=== PATIENT | female | born 1935 | race Caucasian/White ===

== ENCOUNTER 2018-07-15 07:56 | Day surgery (SDC) | payer MEDICARE, BC ==
[~2018-07-15] VITALS: Ht 157.5 cm; Wt 79.5 kg
--- NOTE | ~2018-07-15 | OP ---
PATIENT NAME: EMILIA YEH MEDICAL RECORD: [id number] :35 LOCATION:D.OPS ADMISSION DATE: SURGEON: SHAQ RUIZ MD DATE OF OPERATION: 07/15/2018 PREOPERATIVE DIAGNOSIS: Ascending colon polyp, which was a serrated adenoma. POSTOPERATIVE DIAGNOSES: 1. Ascending colon polyp, which was a serrated adenoma. 2. No apparent residual polyp. There was a secondary sessile polyp, which was a 9-mm polyp that was located at 20 cm. 3. Severe left-sided diverticulosis. PROCEDURES: 1. Total colonoscopy to cecum. 2. Hot biopsy forceps polypectomy times 1. SURGEON: Shaq Ruiz MD RAILROAD INSPECTOR: None. BLOOD LOSS: Minimal. ANESTHESIA: IV sedation. COMPLICATIONS: None. The risks, possible complications, and alternatives to the procedure were explained to the patient. She elects to proceed. ENDOSCOPIC COURSE: The patient was conveyed to endoscopy suite electively on 07/15/2018. IV sedation was induced by the anesthesia staff. The patient was placed in the Babb position. A digital rectal examination was performed. A colonoscope was inserted through the anus. It was easily advanced to the cecum. Upon withdrawal, I irrigated and aspirated extensively. I utilized normal imaging as well as narrow band imaging. The prep was fair. The tattoos in the ascending colon were noted. I noted no residual polypoid tissue. I continued to withdraw the endoscope. There was a sessile polyp, which was removed in its entirety utilizing the hot biopsy forceps polypectomy technique. A retroflexed view was obtained in the rectum. I then unretroflexed the scope and removed it under direct vision. I will see the patient in my office in 2-3 weeks. I will plan for her next colonoscopy to take place in 2 years. TRANSINT:[id number] Voice Confirmation ID: [id number] DOCUMENT ID: [id number] OPERATIVE REPORT [id number] EMILIA YEH SHAQ RUIZ MD CC: Sayra HUNTLEY BRENDA [id number] DICTATION DATE: 07/15/18 1244 FINANCIAL ADVISER: 07/15/18 1456 [facility] 07/15/18 [place] [address]
[2018-07-15 08:31] LABS: BASOPHILS 0.2 % (0-2); EOSINOPHILS 1.3 % (0-7); HEMATOCRIT 43.9 % (36.0-48.0); HEMOGLOBIN 14.5 g/dL (12-16); IMMATURE GRANULOCYTES 0.4 % (0-5); LYMPHOCYTES 26.6 % (15-50); MCH 31.9 pg (26.0-34.0); MCV 96.5 fL (80.0-100.0); MEAN PLATELET VOLUME 10.9 fL (7.4-10.4); MONOCYTES 12.2 % (2-11); NEUTROPHILS 59.3 % (40-80); PLATELET COUNT 249 10x3/uL (130-400); RBC 4.55 10x6/uL (4.00-5.40); RDW 13.2 % (11.5-14.5); WBC 8.4 10x3/uL (4.8-10.8)
[2018-07-15 08:39] LABS: ANION GAP 10.1 mmol/L (8-16); CALCIUM 8.9 mg/dL (8.5-10.1); CARBON DIOXIDE 32.5 mmol/L (21.0-32.0); POTASSIUM - SERUM 3.6 mmol/L (3.5-5.1)
[2018-07-15] MEDS ORDERED: ALBUTEROL SULF8.5 GM INH (09:44)
[2018-07-15] MEDS ORDERED: FUROSEMIDE40 MG PO (09:44)
[2018-07-15] MEDS ORDERED: TRELEGY ELLIPT1 EACH INH (09:44)
[2018-07-15] MEDS ORDERED: [UNRECOGNIZED DRUG - OTHER] (09:45)
[2018-07-15] MEDS ORDERED: EFFEXOR XR75 MG PO (09:45)
[2018-07-15] MEDS ORDERED: MOBIC7.5 MG PO (09:45)
[2018-07-15 09:52] VITALS: BP 117/59; Ht 157.5 cm; Wt 79.5 kg
--- NOTE | 2018-07-15 13:36 | NUR ---
1300-RECD TO ROOM, PORTABLE CXR DONE 1305-DR RUIZ LOOKS AT CXR 1315-FULL LIQUIDS SERVED 1330-IV D/C. VOIDS AND DRESSED. DISCHARGE INSTRUCTIONS REVIEWED. 1336-D/C HOME WITH FAMILY.
== END 2018-07-15 13:36 | disposition home or self-care (01) ==
LOC: D.OPS 07:56
PROVIDERS: Anesthesiology; ATTEND Surgery
DX: D12.5 Benign neoplasm of sigmoid colon (principal); K57.30 Diverticulosis of large intestine without perforation or abscess without bleeding; Z01.812 Encounter for preprocedural laboratory examination

== ENCOUNTER → 2018-11-04 13:23 | Outpatient (CLI) | payer MEDICARE, BC ==
[2018-07-15 09:52] VITALS: BMI 32.1
[~2018-11-04 13:23] MED LIST: ALBUTEROL SULF8.5 GM INH; EFFEXOR XR75 MG PO; FUROSEMIDE40 MG PO; MOBIC7.5 MG PO; TRELEGY ELLIPT1 EACH INH; [UNRECOGNIZED DRUG - OTHER]
--- NOTE | 2018-11-11 11:09 | EC ---
PATIENT:EMILIA YEH DATE OF SERVICE: 11/04/18 SEX: F MEDICAL RECORD: [id number] DATE OF : 35 LOCATION:D.FORMERLY [facility] AGE OF PATIENT: 83 ADMISSION DATE: 11/04/18 REFERRING PHYSICIAN: INTERPRETING PHYSICIAN: OUSMANE JAMES MD ECHOCARDIOGRAM REPORT ECHO CHARGES 4 ECHO COMPLETE Date: 11/04/18 CLINICAL DIAGNOSIS: MR ECHOCARDIOGRAPHIC MEASUREMENTS (adult normal given) AC root (d.<3.7cm) 3.0 cm LV Septum d (<1.2 cm> 1.0 cm Valve Excursion 1.6 cm LV Septum (systole) 1.8 cm Left Atria (s.<4.0cm> 4.1 cm LVPW d(<1.2cm) 1.1 cm RV (d.<2.3cm) 2.9 cm LVPW (sytole) 1.4 cm LV diastole(<5.6CM) 5.4 cm MV E-F(>70mm/sec) cm LV systole 3.4 cm LVOT Diameter 1.7 cm MV exc.(>10mm) cm Est.ejection fraction (50-75%) % DOPPLER: LVIT cm/sec A 116 cm/sec E 71.0 cm/sec LA cm/sec RVSP 26.0 mmHg LVOT 101 cm/sec AOP1/2T m/s Asc. Ao 145 cm/sec RVOT 55.0 cm/sec RA cm/sec PA 79.0 cm/sec AV Gradient Peak 8.4 mmHg AV Mean 4.4 mmHg AV Area 1.3 cm MV Gradient Peak 4.3 mmHg MV Mean 1.6 mmHg MV Area cm COMMENTS: OP - HC Reconciliation Manager: Shital ARMENDARIZOE Disassembler: 1 Dr. James TAPE# PACS Pericardial Effusion N DATE OF SERVICE: 11/04/2018 FINDINGS: 1. Left ventricular chamber size is within normal limits. Left ventricular systolic function is normal. Overall ejection fraction is estimated at 55%. 2. Left atrium is enlarged at 4.1 cm. Right atrium and right ventricular chamber sizes are within normal limit. 3. Valvular structures have normal structure and motion. 4. Doppler interrogation reveals trace mitral regurgitation. No other valvular insufficiency or stenosis. Pulmonary systolic pressure is estimated at 26 mmHg. ECHOCARDIOGRAM REPORT [id number] EMILIA YEH 5. No evidence of pericardial effusion or left ventricular thrombus. TRANSINT:[id number] Voice Confirmation ID: [id number] DOCUMENT ID: [id number] OUSMANE JAMES MD at 1109 CC: [id number] DICTATION DATE: 11/04/18 1601 FAA CERTIFIED POWERPLANT MECHANIC: 11/04/18 1632 DEP CLI 11/04/18 [place] [id number] [place] [id number]
== END | disposition home or self-care (01) ==
LOC: D.HCCARDIO 13:23
PROVIDERS: ATTEND Internal Medicine Interventional Cardiology
DX: I34.0 Nonrheumatic mitral (valve) insufficiency (principal)